=== PATIENT | female | born 1965 | race African-American/Black ===

== ENCOUNTER 2017-09-10 22:20 | Emergency (ER) | payer OTHER, MEDICARE ==
[~2017-09-10] VITALS: Ht 167.6 cm; Wt 92.5 kg
--- OUTSIDE RECORDS SUMMARY | 2017-09-10 22:23 | XMS REPORT ---
Author Author [facility] Address Unknown Phone Unavailable Care Team Providers Care Building Maintenance Custodian Name Role Phone Unavailable Unavailable Problems This patient has no known problems. Allergies, Adverse Reactions, Alerts This patient has no known allergies or adverse reactions. Medications This patient has no known medications. Encounters Start Date/Time End Date/Time Encounter Type Admission Type Attending Clinicians Care Facility Care Department Encounter ID 2015-05-28 13:33:23 2015-05-28 13:33:23 Emergency [facility] [id number]
--- OUTSIDE RECORDS SUMMARY | 2017-09-10 22:23 | XMS REPORT | Summary of Care ---
Author Author [facility] Address [address] [place] [address] Phone Unavailable Care Team Providers Care Corn Sheller Name Role Phone SHEY DERAS N.P. Unavailable Unavailable MIGUEL ZAVALA SD, AMANDA JO Unavailable Unavailable Unavailable Unavailable Functional Status Name Dates Details Functional status health issues are not documented Status: Name Dates Details Cognitive status health issues are not documented Status: Problems Name Dates Details Postoperative visit (V58.49, Z48.89) Status: Active Encounter for routine pelvic examination (V72.31, Z01.419) Status: Active Vaginal discharge (623.5, N89.8) Status: Active Menopausal symptom (627.2, N95.1) Status: Active Bacterial vaginosis (616.10, N76.0) Status: Active Furuncle (680.9, L02.92) Status: Active Hyperlipidemia (272.4, E78.5) Status: Active Encounter for smoking cessation counseling (V65.42, Z71.6) Status: Active Carotid aneurysm, 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 * Start : 26-Nov-2015 Active AmLODIPine Besylate 10 MG Oral Tablet * Refills: 0 * Start : 26-Nov-2015 Active Dexilant 60 MG Oral Capsule Delayed Release TAKE 1 CAPSULE DAILY EVERY MORNING BEFORE BREAKFAST. * Refills: 0 * Start : 18-Jun-2016 Active Nicotine 7 MG/24HR Transdermal Patch 24 Hour APPLY 1 PATCH DAILY DIRECTED. * Quantity: 21 Refills: 0 SHEY DERAS N.P. * Start : 18-Jun-2016 Active BuPROPion HCl ER (XL) 150 MG Oral Tablet Extended Release 24 Hour TAKE 1 TABLET QD X 3DYAS, THEN INCREASE TO 150 MG PO Q12 HRS FOR 11 WEEKS * Quantity: 88 Refills: 0 SHEY DERAS N.P. * Start : 18-Jun-2016 Active Simvastatin 40 MG Oral Tablet TAKE 1 TABLET DAILY DIRECTED. * Quantity: 90 Refills: 1 PARTHAA N.P.SHEY * Start : 12-Jan-2017 Active HydroCHLOROthiazide 12.5 MG Oral Capsule TAKE ONE CAPSULE BY MOUTH EVERY DAY * Quantity: 30 Refills: 3 OKPALA N.P.SHEY * Start : 16-Sep-2016 Active Allergies and Adverse Reactions Name Dates Details No Known Allergies (Allergy) Status: Active Past Medical History Name Dates Details History of Boil, vagina (616.89, N76.89) Status: Resolved Procedures Procedure Dates Details History of Hernia Repair Completed History of Tubal Ligation Completed History of Appendectomy Completed History of Hysterectomy Completed Immunization Name Dates Details Immunizations not documented Family History Name Dates Details Family history of diabetes mellitus (V18.0, Z83.3) Status: Active Family history of hypercholesterolemia (V18.19, Z83.42) Status: Active Social History Name Dates Details - Status: Name Dates Details Current every day smoker Vital Signs Date Test Result Details No Known Vitals to report Results Date Description Value Details Results not documented Plan of Care Name Dates Details Planned Observations Planned Goals not documented Instructions Name Dates Details Instructions not documented Encounters Appointment; GLENROY LOZANO M.D. Encounter Diagnosis: Problem not documented On: 26-Nov-2015 8:40 Appointment; GLENROY LOZANO M.D. Encounter Diagnosis: Problem not documented On: 19-Dec-2015 10:30 Appointment; GLENROY LOZANO M.D. Encounter Diagnosis: Problem not documented On: 27-Dec-2015 10:30 Appointment; GLENROY LOZANO M.D. Encounter Diagnosis: Problem not documented On: 31-Dec-2015 10:30 Appointment; GLENROY LOZANO M.D. Encounter Diagnosis: Problem not documented On: 07-Jan-2016 9:00 Appointment; GLENROY LOZANO M.D. Encounter Diagnosis: Problem not documented On: 17-Jan-2016 8:15 Appointment; GLENROY LOZANO M.D. Encounter Diagnosis: Problem not documented On: 24-Apr-2016 9:25 Appointment; SHEY DERAS NP Encounter Diagnosis: Problem not documented On: 18-Jun-2016 14:00 Appointment; SHEY DERAS NP Encounter Diagnosis: Problem not documented On: 16-Sep-2016 9:00
[2017-09-11 00:28] VITALS: BP 122/69
== END 2017-09-11 00:32 | disposition home or self-care (01) ==
LOC: FSED 22:20
DX: R06.00 Dyspnea, unspecified (principal); R06.02 Shortness of breath; I10 Essential (primary) hypertension; E78.5 Hyperlipidemia, unspecified; K27.9 Peptic ulcer, site unspecified, unspecified as acute or chronic, without hemorrhage or perforation; F17.210 Nicotine dependence, cigarettes, uncomplicated
CPT/HCPCS: 93005

== ENCOUNTER 2017-10-23 18:29 | Emergency (ER) | payer MEDICARE, OTHER ==
[~2017-10-23] VITALS: Ht 167.6 cm; Wt 92.5 kg
--- OUTSIDE RECORDS SUMMARY | 2017-10-23 18:32 | XMS REPORT | Summary of Care ---
Author Author ANDRES [facility], [facility] Unknown Address Unknown Phone Unavailable Care Team Providers Care Senior Care Specialist Name Role Phone SHEY DERAS N.P. Unavailable Unavailable JERZY MCCLAIN M.D. Unavailable Unavailable NIKOLAS WATSON MD Unavailable Unavailable Unavailable Unavailable Functional Status Name [...] Benign essential hypertension (401.1, I10) Status: Active Positive JERMAIN (antinuclear antibody) (795.79, R76.8) Status: Active Medications Name Dates Details AmLODIPine Besylate 10 MG Oral Tablet TAKE 1 TABLET DAILY. * Start : 26-Nov-2015 Active 30 Tablet Bottle Simvastatin 40 MG Oral Tablet TAKE 1 TABLET DAILY DIRECTED. * Quantity: 90 Refills: 1 ROSAPALA N.P., MUNACHI * Start : 12-Jan-2017 Active HydroCHLOROthiazide 12.5 MG Oral Capsule TAKE ONE CAPSULE BY MOUTH EVERY DAY * Quantity: 30 Refills: 3 OKPALA N.P., MUNACHI * Start : 16-Sep-2016 Active Chlorthalidone TABS TAKE 1 TABLET DAILY. * Refills: 0 Active Omeprazole TBEC TAKE 1 TABLET DAILY * Refills: 0 Active Ara Aspirin EC Low Dose 81 MG Oral Tablet Delayed Release TAKE 1 TABLET DAILY DIRECTED. * Refills: 0 Active Flexeril TABS TAKE 1 TABLET PRN * Refills: 0 Active Allergies and Adverse Reactions Name Dates Details No Known Allergies (Allergy) Status: Active Past Medical History Name Dates Details History of Boil, vagina (616.89, N76.89) Status: Resolved Procedures Procedure Dates Details [QLH] CBC (INCLUDES DIFF/PLT) Date: 20-Oct-2017 [QL] CMP W/EGFR Date: 20-Oct-2017 [QL] SED RATE BY MODIFIED WESTERGREN Date: 20-Oct-2017 [QL] C-REACTIVE PROTEIN Date: 20-Oct-2017 [QL] URINALYSIS, COMPLETE Date: 20-Oct-2017 [QL] SODIUM W/0 CREATININE, RANDOM URINE Date: 20-Oct-2017 [QL] COMPLEMENT COMPONENT C3C Date: 20-Oct-2017 [QL] COMPLEMENT COMPONENT C4C Date: 20-Oct-2017 [QL] CARDIOLIPIN AB (IGA,IGG,IGM) Date: 20-Oct-2017 [QL] Lupus Anticoagulant Panel Date: 20-Oct-2017 [QL] BETA 2 GLYCOPROTEIN I AB (IGG,IGA,IGM) Date: 20-Oct-2017 History of Hernia Repair Completed History of [...] smoker Vital Signs Date Test Result Details [id number] BP Systolic 125 mm[Hg] Status: Comments: Location: RUE; Position: Sitting BP Diastolic 77 mm[Hg] Status: Comments: Location: RUE; Position: Sitting Height 66 in Status: Weight 205.8 lb Status: Body Mass Index Calculated 33.22 kg/m2 Status: Body Surface Area Calculated 2.02 m2 Status: Heart Rate 98 /min Status: Comments: Location: R Carotid; Results Date Description Value Details Results not documented Plan of Care Name Dates Details Planned Observations Planned Goals not documented Interventions Provided Labs/Procedures/Imaging* [QL] BETA 2 GLYCOPROTEIN I AB (IGG,IGA,IGM); To Be Done : 20 Oct 2017 * [QLH] CARDIOLIPIN AB (IGA,IGG,IGM); To Be Done: 20 Oct 2017 * [QLH] CBC (INCLUDES DIFF/PLT); To Be Done: 20 Oct 2017 * [QLH] CMP W/EGFR; To Be Done: 20 Oct 2017 * [QLH] COMPLEMENT COMPONENT C3C; To Be Done: 20 Oct 2017 * [QLH] COMPLEMENT COMPONENT C4C; To Be Done: 20 Oct 2017 * [QLH] C-REACTIVE PROTEIN; To Be Done: 20 Oct 2017 * [QLH] Lupus Anticoagulant Panel; To Be Done: 20 Oct 2017 * [QLH] SED RATE BY MODIFIED WESTERGREN; To Be Done: 20 Oct 2017 * [QLH] SODIUM W/0 CREATININE, RANDOM URINE; To Be Done: 20 Oct 2017 * [QLH] URINALYSIS, COMPLETE; To Be Done: 20 Oct 2017 Instructions Name Dates Details Instructions not documented Encounters Appointment; GLENROY LOZANO M.D. Encounter Diagnosis: Problem not documented On: 26-Nov-2015 8:40 Appointment; GLENROY LOZANO M.D. Encounter Diagnosis: Problem not documented On: 19-Dec-2015 10:30 Appointment; GELNROY LOZANO M.D. Encounter Diagnosis: Problem not documented [...] Diagnosis: Problem not documented On: 16-Sep-2016 9:00 Appointment; JERZY MCCLAIN M.D. Encounter Diagnosis: Problem not documented On: 20-Oct-2017 10:00
--- OUTSIDE RECORDS SUMMARY | 2017-10-23 18:32 | XMS REPORT | Continuity of Care Document ---
Author Author [facility] Organization [facility] Address [address] [place] [address] Phone Unavailable Care Team Providers Care Lead Refiner Name Role Phone NO, PCP PCP Unavailable Advance Directives Directive Response Recorded Date/Time Does the patient have an advance directive? No 09/11/17 3:59am Do you have a Directive to Physician? No 09/11/17 3:59am Do you have a Medical Power of Grief Counsellor? No 09/11/17 3:59am Do you have an out of hospital Do Not Resuscitate Order? No 09/11/17 3:59am Do you have any special needs we should be aware of? No 09/11/17 3:59am Do you have a support person here with you today? Yes 09/11/17 3:59am Did patient receive Notice of Privacy Practices? Yes 09/11/17 3:59am Did patient receive patient rights and responsibilities? Yes 09/11/17 3:59am Problems No problem information available. Medications No medication information available. Social History Smoking Status Start Date Stop Date Current every day smoker Hospital Discharge Instructions No hospital discharge instruction information available. Plan of Care Discharge Date 09/11/17 12:32am Disposition HOME, SELF-CARE Condition at Discharge Stable Instructions/Education Provided Dyspnea Prescriptions See Medication Section Additional Instructions/Education Return to the closest emergency room if symptoms worsen. Follow up with your primary care physician on Wednesday. Functional Status No functional status information available. Allergies, Adverse Reactions, Alerts No known allergies. Immunizations No immunization information available. Vital Signs Acute Vital Signs Vital Response Date/Time Pulse Pulse Rate (adult) 90 bpm (60 - 90) 09/11/2017 12:28am Respiratory Rate 18 bpm (12 - 24) 09/11/2017 12:28am Blood Pressure 122/69 mm Hg 09/11/2017 12:28am Height 5 ft 6 in 09/10/2017 10:25pm Weight 204 lb 09/10/2017 10:25pm Body Mass Index 32.9 kg/m^2 09/10/2017 10:25pm Results No relevant diagnostic test, laboratory data and/or discharge summary information available. Procedures No procedure information available. Encounters Encounter Location Arrival/Admit Date Discharge/Depart Date Attending Provider Departed Emergency Room [facility] 09/10/17 10:20pm 09/11 12:32am AUBREE PETERSON MD
[2017-10-23] MEDS ORDERED: ASPIRIN81 MG (19:00)
[2017-10-23] MEDS ORDERED: OMEPRAZOLE40 MG (19:00)
[2017-10-23] MEDS ORDERED: CYCLOBENZAPRINE5 MG (19:00)
[2017-10-23] MEDS ORDERED: SIMVASTATIN40 MG PO (19:01)
[2017-10-23] MEDS ORDERED: AMLODIPINE BESYL5 MG PO (19:02)
[2017-10-23 22:00] VITALS: BP 152/84
== END 2017-10-23 19:20 | disposition home or self-care (01) ==
LOC: FSED 18:29
DX: R05 Cough (principal); J18.9 Pneumonia, unspecified organism; I10 Essential (primary) hypertension; E78.5 Hyperlipidemia, unspecified
CPT/HCPCS: 71046; 99282